=== PATIENT | male | born 1975 | race Caucasian/White ===

== ENCOUNTER 2016-11-25 21:23 | Emergency (ER) | payer MEDICARE ==
[2016-11-25 22:01] LABS: URINE BILIRUBIN NEGATIVE (NEGATIVE); URINE BLOOD NEGATIVE (NEGATIVE); URINE GLUCOSE (UA) NORMAL (NORMAL); URINE KETONE NEGATIVE (NEGATIVE); URINE LEUKOCYTE ESTERASE TRACE (NEGATIVE); URINE NITRATE NEGATIVE (NEGATIVE); URINE PROTEIN NEGATIVE (NEGATIVE)
[2016-11-25 22:10] LABS: URINE RBC 0-5 /[HPF] (0-2)
[2016-11-25 22:11] LABS: URINE WBC 0-5 /[HPF] (0-3)
[2016-11-25 23:26] LABS: BASO % 0.7 % (0.2-1.2); EOS # 0.6 10_X3_uL (0.0-0.5); EOS % 10.9 % (0.8-7.0); GRAN # 3.1 10_X3_uL (1.8-5.4); HEMATOCRIT 37.3 % (40-51); HEMOGLOBIN 12.3 g/dL (13.7-17.5); LYMPH # 1.4 10_X3_uL (1.3-3.6); LYMPH % 24.8 % (21.8-53.1); MEAN CORPUSCULAR HEMOGLOBIN 25.3 pg (27.0-33.0); MEAN CORPUSCULAR VOLUME 76.6 fL (79-92); MEAN PLATELET VOLUME 9.9 fl (7.5-11.5); MONO # 0.6 10_X3_uL (0.3-0.8); MONO % 10.6 % (5.3-12.2); PLATELET COUNT 269 x10_3/uL (163-337); RED BLOOD COUNT 4.87 x10_6/uL (4.6-6.1); WHITE BLOOD COUNT 5.8 x10_3/uL (4.2-9.1)
[2016-11-25 23:40] LABS: BLOOD UREA NITROGEN 13 mg/dL (7-18); CALCIUM 9.4 mg/dL (8.7-10.7); CARBON DIOXIDE 30 mmol/L (21-32); CREATININE 0.8 mg/dL (0.6-1.3); GLUCOSE,RANDOM 120 mg/dL (70-99); POTASSIUM 3.6 mmol/L (3.5-5.1); SODIUM 138 mmol/L (136-145)
== END 2016-11-26 00:01 | disposition home or self-care (01) ==
LOC: ER 21:23
PROVIDERS: Emergency Medicine
DX: N53.12 Painful ejaculation (principal); N48.1 Balanitis; R30.0 Dysuria; R10.9 Unspecified abdominal pain; I10 Essential (primary) hypertension; G62.9 Polyneuropathy, unspecified; F11.20 Opioid dependence, uncomplicated; Z88.2 Allergy status to sulfonamides; Z79.899 Other long term (current) drug therapy
CPT/HCPCS: 36415; 80048; 81001; 85025; 99283